=== PATIENT | male | born 1965 | race Caucasian/White ===

== ENCOUNTER 2017-08-12 07:22 | Emergency (ER) | payer MEDICARE, OTHER ==
[2017-08-12 07:22] VITALS: BMI 25.1
[2017-08-12 07:27] VITALS: RESP 18
[2017-08-12] MEDS ORDERED: Albuterol-Ipratrop 3 mg / 0.5 (3 ml) UD INH STA (07:54)
--- NOTE | 2017-08-12 08:02 | C.PDOC ---
History Of Present Illness 52 y/o male presents to ED with complaints of yellow/green phlegm productive cough associated with nasal congestion for 1 week. Patient admits to nausea and admits to tobacco use. Patient reports not taking any medication for symptoms and denies abdominal pain, fever, chest pain, sob or any other complaints at this time. Time Seen by Provider: 08/12/17 07:32 Chief Complaint (Nursing): Cough, Cold, Congestion History Per: Patient History/Exam Limitations: no limitations Onset/Duration Of Symptoms: Days Current Symptoms Are (Timing): Still Present Associated Symptoms: Cough, Nasal Congestion, Nausea Past Medical History Reviewed: Historical Data, Nursing Documentation, Vital Signs Vital Signs: Last Vital Signs Temp 98.7 F 08/12/17 07:25 Pulse 87 08/12/17 07:25 Resp 18 08/12/17 07:25 BP 114/81 08/12/17 07:25 Pulse Ox 97 08/12/17 08:08 - Medical History PMH: Arthritis Surgical History: No Surg Hx - [facility] Procedures EXCISION INTERVERT DISC (02/09/13) Family History: States: No Known Family Hx - Social History Hx Alcohol Use: No Hx Substance Use: No - Immunization History Hx Tetanus Toxoid Vaccination: No Hx Influenza Vaccination: No Hx Pneumococcal Vaccination: No Review Of Systems Except As Marked, All Systems Reviewed And Found Negative. ENT: Positive for: Nose Congestion Respiratory: Positive for: Cough Physical Exam - Physical Exam Appears: Non-toxic, No Acute Distress Skin: Warm, Dry, No Rash Head: Atraumatic, Normacephalic Eye(s): bilateral: Normal Inspection Ear(s): Bilateral: Normal Oral Mucosa: Moist Throat: Normal, No Erythema, No Exudate Neck: Normal ROM, Supple Cardiovascular: Rhythm Regular Respiratory: No Rales, No Rhonchi, Wheezing (Expiratory) Gastrointestinal/Abdominal: Soft, No Tenderness, No Guarding, No Rebound Back: Other (well healed surgical scar on thoracic region) Extremity: Normal ROM, Capillary Refill (<2 seconds) Neurological/Psych: Oriented x3, Normal Speech ED Course And Treatment O2 Sat by Pulse Oximetry: 97 (RA) Pulse Ox Interpretation: Normal Medical Decision Making Medical Decision Making: Assessment: Bronchitis Plan: CXR and Albuterol ordered. Azithromycin and Sudafed administered Disposition Counseled Patient/Family Regarding: Studies Performed, Diagnosis, Need For Followup, Rx Given - Disposition Referrals: Virgilio Kauffman MD [Non-Staff] - Disposition: HOME/ ROUTINE Disposition Time: 09:10 Condition: STABLE Additional Instructions: follow up with your doctor in 2 days call to make an appointment take medications as prescribed return to hospital if symptoms worsens or progress Prescriptions: Albuterol HFA [Ventolin HFA 90 mcg/actuation (8 g)] 2 puff IH [id number] #1 puff Azithromycin [Zithromax] 250 mg PO DAILY #4 tab Pseudoephedrine HCl [Sudafed] 30 mg PO QID PRN #20 tablet PRN Reason: Other Instructions: Acute Bronchitis Forms: [facility] (Khmer), General Discharge Instructions - Clinical Impression Clinical Impression: Bronchitis, Sinus congestion - Scribe Statement The provider has reviewed the documentation as recorded by the Trayibnat [place] All medical record entries made by the Scribe were at my direction and personally dictated by me. I have reviewed the chart and agree that the record accurately reflects my personal performance of the history, physical exam, medical decision making, and the department course for this patient. I have also personally directed, reviewed, and agree with the discharge instructions and disposition.
--- NOTE | 2017-08-12 08:35 | RAD ---
Chest x-ray two views History: Cough. Comparison: 02/01/2016 Findings: No focal infiltrate or effusion. Heart size within normal limits. Right hilar prominence. Impression: No focal infiltrate or effusion.
[2017-08-12] MEDS ORDERED: Albuterol-Ipratrop 3 mg / 0.5 (3 ml) UD ONE (08:44)
[2017-08-12 09:23] VITALS: BP 112/79; PULSE 80; TEMP 98.4; O2SAT 96
== END 2017-08-12 09:22 | disposition home or self-care (01) ==
LOC: C.ER 07:22
DX: J40 Bronchitis, not specified as acute or chronic (principal); R09.81 Nasal congestion

== ENCOUNTER 2017-12-31 07:49 | Emergency (ER) | payer MEDICARE, OTHER ==
[2017-12-31 07:50] VITALS: BMI 25.1
[2017-12-31 08:42] LABS: BASO % 0.3 % (0.0-2.0); EOS # 0.1 K/uL (0.0-0.7); EOS % 0.9 % (0.0-4.0); HEMOGLOBIN 13.2 g/dL (12.0-18.0); LYMPH # 2.9 K/uL (1.0-4.3); LYMPH % 24.5 % (20.0-40.0); MEAN CELL VOLUME 90.8 fL (80.0-94.0); MEAN CORPUSCULAR HEMOGLOBIN 32.7 pg (27.0-31.0); MEAN PLATELET VOLUME 7.4 fL (7.2-11.7); MONO # 0.8 K/uL (0.0-0.8); MONO % 6.7 % (0.0-10.0); NEUT # 8.1 K/uL (1.8-7.0); NEUT % 67.6 % (50.0-75.0); NRBC % 0.1 % (0.0-2.0); RBC 4.03 Mil/uL (4.40-5.90); RED CELL DISTRIBUTION WIDTH 12.7 % (11.5-14.5)
--- NOTE | 2017-12-31 08:58 | C.PDOC ---
History Of Present Illness 52 year old male presents to the emergency department with complaints of throat pain persisting for he last three days. Patient reports that he has had a series of ENT issues such as "ear-popping" and bumps on his tongue. Currently he complains of throat and ear pain. Time Seen by Provider: 12/31/17 08:06 Chief Complaint (Nursing): ENT Problem History Per: Patient History/Exam Limitations: None Onset/Duration Of Symptoms: Days (3) Current Symptoms Are (Timing): Still Present Quality (Ear): Other (Pain) Quality (Mouth/Throat): Other (pain) Symptoms Have Been: Continuous Past Medical History Reviewed: Historical Data, Nursing Documentation, Vital Signs Vital Signs: Last Vital Signs Temp 98.2 F 12/31/17 11:52 Pulse 84 12/31/17 11:52 Resp 16 12/31/17 11:52 BP 107/74 12/31/17 11:52 Pulse Ox 98 12/31/17 12:03 - Medical History PMH: Arthritis Surgical History: Cholecystectomy - [facility] Procedures EXCISION INTERVERT DISC (02/09/13) Family History: States: No Known Family Hx - Social History Hx Alcohol Use: No Hx Substance Use: No - Immunization History Hx Tetanus Toxoid Vaccination: No Hx Influenza Vaccination: No Hx Pneumococcal Vaccination: No Review Of Systems Except As Marked, All Systems Reviewed And Found Negative. ENT: Positive for: Ear Pain, Throat Pain Physical Exam - Physical Exam Appears: Non-toxic, No Acute Distress Skin: Warm, Dry Head: Atraumatic, Normacephalic Eye(s): bilateral: Normal Inspection Ear(s): Bilateral: Normal Oral Mucosa: Moist Tongue: Normal Appearing Teeth: No Normal Dentition Neck: Supple, Other (mass to the left side of the neck) Lymphatic: Adenopathy (left-sided palpable mass/adenopathy) Chest: Symmetrical Cardiovascular: Rhythm Regular, No Murmur Respiratory: Normal Breath Sounds, No Rales, No Rhonchi, No Wheezing Extremity: Normal ROM Neurological/Psych: Oriented x3, Normal Speech, Normal Cognition ED Course And Treatment - Laboratory Results Result Diagrams: 12/31/17 08:36 12/31/17 08:36 O2 Sat by Pulse Oximetry: 98 - CT Scan/US CT Neck Soft Tissue Other Rad Studies (CT/US): Read By Radiologist, Radiology Report Reviewed CT/US Interpretation: IMPRESSION: No neck mass identified. No significant lymphadenopathy. Medical Decision Making Medical Decision Making: Assessment: Adenopathy Plan: CT Neck Soft Tissue CMP CBC Toradol 30mg IVP neck pain/throat pain - will discharge home to follow up with ent within 2 days Disposition - Disposition Referrals: Bryan Corey MD [Staff Provider] - Disposition: HOME/ ROUTINE Disposition Time: 12:01 Condition: STABLE Additional Instructions: follow up with Dr. Corey within 2 days call to make an appointment take medications as prescribed return to ER if symptoms worsens or progress Prescriptions: Naproxen [Naprosyn] 500 mg PO BID PRN #16 tab PRN Reason: Pain, Moderate (4-7) Instructions: Neck Pain Forms: General Discharge Instructions, [facility] ([place] Arabian), Work Excuse - Clinical Impression Clinical Impression: Neck pain - Scribe Statement The provider has reviewed the documentation as recorded by the Scribe (Geovani Pederson) Provider Attestation: All medical record entries made by the Scribe were at my direction and personally dictated by me. I have reviewed the chart and agree that the record accurately reflects my personal performance of the history, physical exam, medical decision making, and the department course for this patient. I have also personally directed, reviewed, and agree with the discharge instructions and disposition.
[2017-12-31 09:04] LABS: ALB/GLOB RATIO 1.5 (1.0-2.1); ALBUMIN 3.9 g/dL (3.5-5.0); ALT/SGPT 25 U/L (21-72); AST/SGOT 16 U/L (17-59); BLOOD UREA NITROGEN 9 mg/dL (9-20); CALCIUM 8.6 mg/dl (8.6-10.4); GFR NON-AFRICAN AMERICAN > 60
[2017-12-31] MEDS ORDERED: Iodixanol 320 MG/ML 100 ML BOTTLE IV ONE (10:03)
--- NOTE | 2017-12-31 11:47 | CT ---
Date of service: 12/31/2017 PROCEDURE: CT NECK WITH CONTRAST HISTORY: throat mass COMPARISON: Not available TECHNIQUE: CT of the neck with intravenous contrast. Coronal and sagittal reformats generated. The examination was performed with a radiopaque cutaneous marker on the left side of the neck indicating the site of palpable abnormality, as indicated by the patient. Intravenous contrast dose: 100 mL Visipaque 320 Radiation dose: DLP 375.60 mGy-cm This CT exam was performed using one or more of the following dose reduction techniques: Automated exposure control, adjustment of the mA and/or kV according to patient size, and/or use of iterative reconstruction technique. FINDINGS: NASOPHARYNX: Unremarkable. SUPRAHYOID NECK: Unremarkable oropharynx, oral cavity, parapharyngeal space and retropharyngeal space. INFRAHYOID NECK: Unremarkable larynx, hypopharynx, and supraglottic space. Vocal cords intact. MASS: None. GLANDS: Parotid and submandibular glands unremarkable. Normal size thyroid gland, without nodule. LYMPH NODES: Shotty level 1 and 2 nodes. No significant enlarged cervical lymph nodes identified. CERVICAL SPINE: Mild degenerative disc disease at C6-7. VASCULAR STRUCTURES: Unremarkable. OTHER FINDINGS: None. IMPRESSION: No neck mass identified. No significant lymphadenopathy.
[2017-12-31 12:03] VITALS: O2SAT 98
[2017-12-31 12:30] VITALS: BP 116/77; PULSE 63; RESP 18; TEMP 98.3
== END 2017-12-31 12:31 | disposition home or self-care (01) ==
LOC: C.ER 07:49
DX: M54.2 Cervicalgia (principal)
CPT/HCPCS: 70491; 80053; 85025; 96374; 99284; J1885; Q9967

== ENCOUNTER 2018-06-06 12:10 | Emergency (ER) | payer MEDICARE, OTHER ==
[2018-06-06 12:10] VITALS: BMI 25.1
[2018-06-06 12:19] VITALS: BP 132/92; PULSE 82; RESP 18; TEMP 97.2; O2SAT 99
--- NOTE | 2018-06-06 12:36 | C.PDOC ---
History Of Present Illness 52 y/o male presents to the ED for evaluation of left foot injury sustained 3 days ago. Patient states his left ankle was caught on the curb and was twisted. He tried icing the foot with minimal relief. Now complains of persistent pain and swelling to the outer side of left foot. Of note, patient uses cane to ambulate secondary to hx of multiple back surgeries. He also has hx of chronic narcotic use, which he takes at home for his back pain. Time Seen by Provider: 06/06/18 12:22 Chief Complaint (Nursing): Lower Extremity Problem/Injury History Per: Patient History/Exam Limitations: no limitations Onset/Duration Of Symptoms: Days (3) Current Symptoms Are (Timing): Still Present Past Medical History Reviewed: Historical Data, Nursing Documentation, Vital Signs Vital Signs: Last Vital Signs Temp 97.2 F L 06/06/18 12:13 Pulse 82 06/06/18 12:13 Resp 18 06/06/18 12:13 BP 132/92 H 06/06/18 12:13 Pulse Ox 99 06/06/18 12:13 - Medical History PMH: Arthritis, Back Problems Surgical History: Cholecystectomy - [facility] Procedures EXCISION INTERVERT DISC (02/09/13) Family History: States: Unknown Family Hx - Social History Hx Alcohol Use: No Hx Substance Use: No - Immunization History Hx Tetanus Toxoid Vaccination: No Hx Influenza Vaccination: No Hx Pneumococcal Vaccination: No Review Of Systems Except As Marked, All Systems Reviewed And Found Negative. Constitutional: Negative for: Fever Musculoskeletal: Positive for: Foot Pain Skin: Negative for: Rash, Lesions Neurological: Negative for: Weakness, Numbness Physical Exam - Physical Exam Appears: Non-toxic, No Acute Distress Skin: Warm, Dry, No Rash Head: Atraumatic, Normacephalic Eye(s): bilateral: Normal Inspection Neck: Normal ROM Chest: Symmetrical Respiratory: No Accessory Muscle Use, Other (NARD) Extremity: Normal ROM (of all digits), Tenderness (over the left 4th and 5th metatarsals), Capillary Refill (< 2 sec), No Deformity, Swelling (mild swelling over the left 4th and 5th metatarsals), Other (Unremarkable lateral and medial malleolus) Pulses: Left Dorsalis Pedis: Normal, Right Dorsalis Pedis: Normal Neurological/Psych: Oriented x3, Normal Motor, Normal Sensation ED Course And Treatment O2 Sat by Pulse Oximetry: 99 (RA) Pulse Ox Interpretation: Normal - Other Rad l foot X-Ray: Interpreted by Me (neg ) L ANKLE X-Ray: Interpreted by Me (NEG) Reevaluation Time: 13:31 Reassessment Condition: Improved (PT DOES NOT WISH TO WAIT FOR PODIATRY, WANTS AIR CAST AND DC. PODIATRY REFERRAL GIVEN) - Physician Consult Information Time Consulting Physician Contacted: 12:56 Outcome Of Conversation: D/W PODIATRY RESIDENT WILL EVAL IN ER Medical Decision Making Medical Decision Making: X-ray taken of left foot and ankle. Disposition Counseled Patient/Family Regarding: Studies Performed, Diagnosis, Need For Followup - Disposition Referrals: Allison Gipson DPM [Staff Provider] - Disposition: HOME/ ROUTINE Disposition Time: 13:31 Condition: IMPROVED Instructions: Foot Sprain (DC) Forms: [facility] (Bulgarian) - Clinical Impression Clinical Impression: Foot sprain - Scribe Statement The provider has reviewed the documentation as recorded by the Trev Woodruff Provider Attestation: All medical record entries made by the Trayibnat were at my direction and personally dictated by me. I have reviewed the chart and agree that the record accurately reflects my personal performance of the history, physical exam, medical decision making, and the department course for this patient. I have also personally directed, reviewed, and agree with the discharge instructions and disposition. Orthopedic Care Application Of:: Ankle Air Cast
--- NOTE | 2018-06-06 13:15 | RAD ---
PROCEDURE: Left Ankle Radiographs. HISTORY: TRAUMA COMPARISON: None FINDINGS: BONES: No acute displaced fracture. JOINTS: No dislocation. SOFT TISSUES: Unremarkable. No evidence of radiopaque foreign body. OTHER FINDINGS: None. IMPRESSION: No acute displaced fracture, dislocation, or significant joint effusion identified. If symptoms persist or if there is clinical concern, x-ray follow-up in 7-10 days should be considered.
--- NOTE | 2018-06-06 13:19 | RAD ---
PROCEDURE: Left Foot Radiographs. HISTORY: TRAUMA COMPARISON: None available. FINDINGS: BONES: No acute displaced fracture. JOINTS: No dislocation. SOFT TISSUES: Unremarkable. No evidence of radiopaque foreign body. OTHER FINDINGS: None. IMPRESSION: No acute displaced fracture, dislocation, or significant joint effusion identified. If symptoms persist, or if there is continued clinical concern, x-ray follow-up in 7-10 days should be considered.
== END 2018-06-06 13:47 | disposition home or self-care (01) ==
LOC: C.ER 12:10
DX: S93.602A Unspecified sprain of left foot, initial encounter (principal); X50.9XXA Other and unspecified overexertion or strenuous movements or postures, initial encounter